=== PATIENT | male | born 1940 | race Caucasian/White ===

== ENCOUNTER 2018-04-29 19:25 | Inpatient (IN) ==
--- NOTE | 2018-04-29 19:56 | Emergency Department Note ---
Disposition Clinical Impression: Atrial fibrillation with RVR GI bleed Qualifiers: GI bleed type/associated pathology: unspecified gastrointestinal hemorrhage type Qualified Code(s): K92.2 - Gastrointestinal hemorrhage, unspecified Disposition: Admitted As Inpatient Condition: Fair Time of Disposition: 23:18 Arrhythmia/Palpitations HPI - General Chief Complaint: ED Arrhythmia/Palpitations Stated Complaint: afib/rectal bleeding Time Seen by Provider: 04/29/18 19:26 Limitations: no limitations Nursing Notes Reviewed: Yes Vital Signs Reviewed: Yes - History of Present Illness HPI Narrative: Patient is a 77-year-old male who presents to [facility] ED with a chief complaint of heart palpitations for the last 3 days. Patient presented to the [facility] urgent care this morning and was admitted for his atrial fibrillation with RVR. He was given Lopressor initially and then given Cardizem and started on a Cardizem drip. He continued to have atrial fibrillation with RVR. He was then given digoxin. It was at that time that he then needed to use the restroom so he pulled out IV and went into the bathroom. Nurse reported that there was a lot of right red blood when he went to the bathroom. The [facility] physician did a rectal exam and noted hemorrhoids. Apparently they had spoken with the who also said he had intermittently been having rectal bleeding from hemorrhoids. Patient is anticoagulated on xarelto. Apparently, patient also became agitated and psychiatry had to be consulted at the [facility]. Pt Subjective Complaint: "heart racing" Onset (ago): day(s) (3) Duration: constant Arrhythmia History: atrial fibrillation, on anti-coagulants Associated symptoms: Denies: chest pain, shortness of breath, nausea, vomiting Treatments prior to arrival: beta-alton, calcium channel alton, other ( digoxin) - Related Data Home Medications Medication Instructions Recorded Confirmed Aspirin Enteric Coated [Aspirin EC] 81 mg PO DAILY 04/29/18 04/29/18 Bupropion HCl [Wellbutrin Xl] 300 mg PO DAILY 04/29/18 04/29/18 Carbidopa/Levodopa 1.5 tab PO DAILY 04/29/18 04/29/18 [Carbidopa-Levodopa 25-100 Tab] Digoxin [Lanoxin] 0.25 mg PO DAILY 04/29/18 04/29/18 Diltiazem HCl/D5w [Diltiazem 125 125 mg IV AD 04/29/18 04/29/18 mg/125 ml-D5w] FLUoxetine HCl [Prozac] 40 mg PO DAILY 04/29/18 04/29/18 Ferrous Sulfate [Iron] 325 mg PO DAILY 04/29/18 04/29/18 Fluticasone Propionate Nasal 2 spr NS DAILY 04/29/18 04/29/18 [Flonase] LORazepam [Ativan] 1 mg PO BID PRN 04/29/18 04/29/18 Levalbuterol HCl [Xopenex 1.25 mg IH Q4H PRN 04/29/18 04/29/18 Concentrate] Losartan Potassium [Cozaar] 100 mg PO DAILY 04/29/18 04/29/18 Metoprolol XL (24 HR) Succ [Toprol 100 mg PO DAILY 04/29/18 04/29/18 XL] Omeprazole [PriLOSEC] 20 mg PO DAILY 04/29/18 04/29/18 Potassium Chloride [K-Tab ER] 20 meq PO BID PRN 04/29/18 04/29/18 Rivaroxaban [Xarelto] 20 mg PO DAILY 04/29/18 04/29/18 Silodosin [Rapaflo] 4 mg PO DAILY 04/29/18 04/29/18 Spironolactone [Aldactone] 25 mg PO NOW PRN 04/29/18 04/29/18 Tiotropium Br/Olodaterol HCl 2 puff IH DAILY 04/29/18 04/29/18 [Stiolto Respimat Inhal Sentinel] Vit A/Vit C/Vit E/Zinc/Copper 1 tab PO DAILY 04/29/18 04/29/18 [Preservision Areds Tablet] Allergies Allergy/AdvReac Type Severity Reaction Status Date / Time No Known Allergies Allergy Verified 04/29/18 21:22 All systems ED: reviewed and negative except as stated. Past Medical History - Past Medical History Attestation: Yes The following information was validated with the patient. Source: patient Medical history: Reports: non-contributory Psychiatric history: Reports: no psych history - Social History Smoking Status: Never smoker Alcohol use: Reports: rarely Drug use: Reports: none Physical Exam - General Limitations: no limitations General appearance: lethargic (pt given ativan 1mg prior to arrival) - Head Head exam: atraumatic, normocephalic, normal inspection - Eye Eye exam: Present: normal appearance, PERRL, EOMI - ENT ENT exam: normal exam, normal oropharynx, mucous membranes moist - Neck Neck exam: Present: normal inspection, full ROM, trachea midline - Chest Chest inspection: Present: normal inspection, symmetric chest wall rise - Respiratory Respiratory exam: Present: normal lung sounds bilaterally - Cardiovascular Cardiovascular exam: Present: tachycardia, irregular rhythm, normal heart sounds - Abdominal Exam Abdominal exam: Present: soft, Non-Tender. Absent: tenderness, distention, guarding, rebound, rigidity - Extremities Exam Extremities exam: Present: normal inspection, full ROM. Absent: tenderness, pedal edema - Neurological Exam Neurological exam: Present: other (somnolent) - Psychiatric Psychiatric exam: Present: normal affect, normal mood - Skin Skin exam: Present: warm, dry, intact, normal color Course Course Narrative: Patient seen and examined. Atrial fibrillation with RVR. Patient is still in this rhythm with a rate in the 140s. Cardiopulmonary workup initiated. We will also get type and screen and coags. Patient is currently on Xarelto. Rectal exam showed some nonbleeding hemorrhoids. However he has a pad on and does have dark blood on the pad. - Reevaluation(s) Reevaluation #1: Labwork unremarkable. We will touch base with cardiology to see any further recommendations for rate control. We will admit to hospitalist service. Patient is hemodynamically stable. Time: 20:36 Reevaluation #2: Per cardiology, okay to go ahead and start amiodarone bolus followed by drip. She would recommend doing a CTA of the chest and abdomen and pelvis to rule out blood clots. We will admit for A. fib with RVR and rectal bleeding. I discussed with the hospitalist who has accepted patient for admission. Time: 23:18 Vital Signs Temperature 98.3 F 04/29/18 19:27 Pulse Rate 143 04/29/18 19:27 Respiratory Rate 20 04/29/18 19:27 Blood Pressure 109/85 04/29/18 19:27 O2 Sat by Pulse Oximetry 93 04/29/18 19:27 Temperature 97.1 F L 04/30/18 05:08 Pulse Rate 128 04/30/18 05:00 Respiratory Rate 18 04/30/18 05:00 Blood Pressure 134/107 04/30/18 05:00 O2 Sat by Pulse Oximetry 93 04/30/18 05:00 Oxygen Delivery Oxygen Delivery Nasal Cannula Arrhythmia/Palpitations - Medical Records Medical records reviewed: Yes I reviewed the patient's medical records. - Lab Data Lab results reviewed: Yes I reviewed the patient's lab results. Result diagrams: 04/30/18 05:22 04/29/18 19:46 Lab Results 04/29/18 04/29/18 04/29/18 Range/Units 19:45 19:46 19:46 WBC 8.2 (4.3-11.1) K/mcL RBC 4.58 (4.19-5.50) M/mcL Hgb 12.7 L (12.9-16.9) g/dL Hct 39.8 (37.5-50.1) % MCV 86.9 (83.0-100.0) fL MCH 27.7 L (28.0-33.3) pg MCHC 31.9 (31.6-35.5) g/dL RDW 15.4 H (11.5-14.5) % Plt Count 351 (140-400) K/mcL MPV 10.5 (9.4-12.4) fL Immature Gran % 0.5 (0-4) % Seg Neutrophils % 69.6 % Lymphocytes % 15.9 % Monocytes % 13.4 % Eosinophils % 0.4 % Basophils % 0.2 % Neutrophils # 5.7 (1.6-8.9) K/mcL Lymphocytes # 1.3 (0.6-4.6) K/mcL Monocytes # 1.1 (0.0-1.3) K/mcL Eosinophils # 0.0 (0.0-0.6) K/mcL Basophils # 0.0 (0.0-0.2) K/mcL Nucleated RBCs/100 WBC 0.2 H (0) /100 WBC PT 20.6 H (9.4-12.1) Seconds INR 1.9 APTT 38.4 H (26.0-36.0) Seconds Sodium (136-145) mEq/L Potassium (3.5-5.1) mEq/L Chloride (98-107) mEq/L Carbon Dioxide (23-29) mEq/L BUN (8-23) mg/dL Creatinine (0.70-1.30) mg/dL Est GFR ( Amer) (> 60) Est GFR (Non-Af Amer) (> 60) BUN/Creatinine Ratio (6-26) Glucose (70-105) mg/dL Calculated Osmolality (280-300) Calcium (8.6-10.3) mg/dL Magnesium (1.6-2.6) mg/dL Troponin I (< 0.04) ng/mL TSH (0.340-5.600) mcIU/mL Stool Occult Blood Positive A (Negative) Blood Type Antibody Screen 04/29/18 04/29/18 Range/Units 19:46 19:46 WBC (4.3-11.1) K/mcL RBC (4.19-5.50) M/mcL Hgb (12.9-16.9) g/dL Hct (37.5-50.1) % MCV (83.0-100.0) fL MCH (28.0-33.3) pg MCHC (31.6-35.5) g/dL RDW (11.5-14.5) % Plt Count (140-400) K/mcL MPV (9.4-12.4) fL Immature Gran % (0-4) % Seg Neutrophils % % Lymphocytes % % Monocytes % % Eosinophils % % Basophils % % Neutrophils # (1.6-8.9) K/mcL Lymphocytes # (0.6-4.6) K/mcL Monocytes # (0.0-1.3) K/mcL Eosinophils # (0.0-0.6) K/mcL Basophils # (0.0-0.2) K/mcL Nucleated RBCs/100 WBC (0) /100 WBC PT (9.4-12.1) Seconds INR APTT (26.0-36.0) Seconds Sodium 143 (136-145) mEq/L Potassium 3.3 L (3.5-5.1) mEq/L Chloride 106 (98-107) mEq/L Carbon Dioxide 28 (23-29) mEq/L BUN 17 (8-23) mg/dL Creatinine 0.64 L (0.70-1.30) mg/dL Est GFR ( Amer) > 60 (> 60) Est GFR (Non-Af Amer) > 60 (> 60) BUN/Creatinine Ratio 27 H (6-26) Glucose 95 (70-105) mg/dL Calculated Osmolality 297 (280-300) Calcium 8.4 L (8.6-10.3) mg/dL Magnesium 1.6 (1.6-2.6) mg/dL Troponin I < 0.03 (< 0.04) ng/mL TSH 0.681 (0.340-5.600) mcIU/mL Stool Occult Blood (Negative) Blood Type AB POSITIVE Antibody Screen NEGATIVE - Radiology Data Radiology results reviewed: Yes I reviewed the patient's radiology results. Chest X-Ray 04/29/18 19:26 IMPRESSION: Moderate left pleural effusion as well as bibasilar airspace disease, atelectasis or pneumonia. Pulmonary edema could also be considered. Follow-up is recommended, preferably with a PA and lateral study. D/ / Araceli Diaz Cha, MD / Araceli Diaz Cha, MD Interpreting Provider: Araceli Diaz Cha, MD - EKG Data EKG attestation: Yes I reviewed and interpreted this EKG. EKG results narrative: EKG done at 1935 shows atrial fibrillation with RVR with a rate of [address] elevation or depression. Normal axis. Attestation Statement - Attestation Attestation: I examined this patient and my medical decision-making was reviewed with the Resident Physician. I agree with the documented findings, disposition and treatment plan as described except to the extent set forth below. Findings consistent with A. fib with RVR. This was not controlled at the [facility]. The patient did receive multiple interventions with digoxin, Cardizem though. He is anticoagulated. We did consider sepsis versus GI hemorrhage. He does have external hemorrhoids and there is stool occult blood present however I do feel this from the hemorrhoids given a stable hemoglobin as well as non- peritoneal abdominal examination. We will obtain CT scan to rule out pulmonary embolism as well as intra-abdominal pathology. We will start amiodarone after consultation with cardiology. I spent greater than 35 minutes of critical care time resuscitating this acutely ill patient suffering from A. fib with RVR requiring amiodarone infusion. This was excluding billable procedures.
[2018-04-29 20:17] LABS: Basophils % 0.2 %; Eosinophils % 0.4 %; Hematocrit 39.8 % (37.5-50.1); Hemoglobin 12.7 g/dL (12.9-16.9); Immature Granulocytes % 0.5 % (0-4); Lymphocytes # 1.3 K/mcL (0.6-4.6); Lymphocytes % 15.9 %; Mean Corpuscular HGB Conc 31.9 g/dL (31.6-35.5); Mean Corpuscular Hemoglobin 27.7 pg (28.0-33.3); Mean Corpuscular Volume 86.9 fL (83.0-100.0); Mean Platelet Volume 10.5 fL (9.4-12.4); Monocytes # 1.1 K/mcL (0.0-1.3); Monocytes % 13.4 %; Neutrophils # 5.7 K/mcL (1.6-8.9); Nucleated Red Blood Cells 0.2 /100 WBC (0); Platelet Count 351 K/mcL (140-400); Red Blood Count 4.58 M/mcL (4.19-5.50); Red Cell Distribution Width 15.4 % (11.5-14.5); Segmented Neutrophils % 69.6 %
[2018-04-29 20:19] LABS: INR 1.9; Prothrombin Time 20.6 Seconds (9.4-12.1)
[2018-04-29 20:21] LABS: Activated Partial Thrombo Time 38.4 Seconds (26.0-36.0)
[2018-04-29 20:23] LABS: BUN/Creatinine Ratio 27 (6-26); Blood Urea Nitrogen 17 mg/dL (8-23); Calcium 8.4 mg/dL (8.6-10.3); Carbon Dioxide 28 mEq/L (23-29); Chloride 106 mEq/L (98-107); Glucose 95 mg/dL (70-105); Magnesium 1.6 mg/dL (1.6-2.6); Osmolality,Calculated 297 (280-300); Potassium 3.3 mEq/L (3.5-5.1); Sodium 143 mEq/L (136-145); Troponin I < 0.03 ng/mL (< 0.04); eGFR For African Americans > 60 (> 60); eGFR For Non-African Americans > 60 (> 60)
[2018-04-29 20:37] LABS: Thyroid Stimulating Hormone 0.681 mcIU/mL (0.340-5.600)
[2018-04-29] MEDS ORDERED: Pantoprazole 40 MG VIAL IVP ONE (21:18)
[2018-04-29] MEDS ORDERED: Amiodarone Premix 150 MG/100 ML BAG IVPB ONE (21:48)
[2018-04-29] MEDS ORDERED: Amiodarone Premix 360 MG/200 ML BAG IVC ONE (21:48)
[2018-04-29] MEDS ORDERED: Isovue-370 500 ML INFUS..BTL IV ONE (22:03)
[2018-04-29] MEDS ORDERED: Furosemide 40 MG/4 ML VIAL IVP ONE (22:06)
--- NOTE | 2018-04-29 23:13 | Internal Med History&Physical ---
<Fozia Ruff - Last Filed: 04/30/18 07:39> Date of Encounter: 04/30/18 Time of Encounter: 00:30 Internal Medicine - H&P: HPI Admitted From: Hospital to Hospital Transfer History of present illness: Mr. Ozuna is a 77 year old male with PMH Parkinson's and chronic Afib anticoagulated on xarelto who presented to the ED with complaints of heart palpitations x 3 days. He initially presented to [facility] urgent care but was then admitted to the [facility] for Afib with RVR. While at the [facility], he received lopressor, cardizem, then cardizem gtt--his Afib with RVR persisted and he was given digoxin. The patient reportedly pulled out his IV before going to the restroom. His nurse at the [facility] reported a substantial amount of bright red blood after the patient used the bathroom and rectal exam by his [facility] doctor revealed hemorrhoids. Per review of ED note, patient's informed them that the pt has been having intermittent bleeding from these hemorrhoids. The pt was reported to have gotten agitated and required a psychiatry consult at the [facility]. He was transferred to [place] for better control of AFib RVR. He was difficult to arrouse on interview and he had reportedly been given Ativan on route to [place]. He did become more arousable however remained somnolent but answers questions appropriately. He admitted to chills and night sweats, cough, pleuritic chest pain. On arrival to the ED, the pt's heart rate was 143 and irregular; cardiac workup was started. His metabolic panel showed slight hypokalemia of 3.3 but was otherwise unremarkable. Hemoglobin and hematorcrit is mildly decreased at 12.7/ 39.8. Coag studies show INR 1.9 and PTT 38.4. Troponin negative. Stool occult was positive. CXR showed moderate left pleural effusion as well as bibasilar airspace disease reflecting either atelectasis vs PNA. Follow up CT showed consolidation suggesting PNA. He was admitted for further workup and management of AFib with RVR and started on amiodarone gtt in ED as well as PNA. Past Med Surg Social Fam HX - Past Medical History Medical history: non-contributory Psychiatric history: no psych history - Social History Smoking Status: Never smoker Alcohol use: rarely Drug use: none Internal Medicine - H&P: Meds Aspirin Enteric Coated [Aspirin EC] 81 mg PO DAILY 04/29/18 [History] Bupropion HCl [Wellbutrin Xl] 300 mg PO DAILY 04/29/18 [History] Carbidopa/Levodopa [Carbidopa-Levodopa 25-100 Tab] 1.5 tab PO DAILY 04/29/18 [ History] Digoxin [Lanoxin] 0.25 mg PO DAILY 04/29/18 [History] Diltiazem HCl/D5w [Diltiazem 125 mg/125 ml-D5w] 125 mg IV AD 04/29/18 [History] FLUoxetine HCl [Prozac] 40 mg PO DAILY 04/29/18 [History] Ferrous Sulfate [Iron] 325 mg PO DAILY 04/29/18 [History] Fluticasone Propionate Nasal [Flonase] 2 spr NS DAILY 04/29/18 [History] LORazepam [Ativan] 1 mg PO BID PRN 04/29/18 [History] Levalbuterol HCl [Xopenex Concentrate] 1.25 mg IH Q4H PRN 04/29/18 [History] Losartan Potassium [Cozaar] 100 mg PO DAILY 04/29/18 [History] Metoprolol XL (24 HR) Succ [Toprol XL] 100 mg PO DAILY 04/29/18 [History] Omeprazole [PriLOSEC] 20 mg PO DAILY 04/29/18 [History] Potassium Chloride [K-Tab ER] 20 meq PO HS 04/29/18 [History] Rivaroxaban [Xarelto] 20 mg PO HS 04/29/18 [History] Silodosin [Rapaflo] 4 mg PO HS 04/29/18 [History] Spironolactone [Aldactone] 25 mg PO NOW PRN 04/29/18 [History] Tiotropium Br/Olodaterol HCl [Stiolto Respimat Inhal [place]] 2.5 mg IH DAILY [History] Vit A/Vit C/Vit E/Zinc/Copper [Preservision Areds Tablet] 1 tab PO BID 04/29/18 [History] Albuterol Sulfate [Albuterol Inhaler] 90 mcg IH QID PRN 04/30/18 [History] Carbidopa-Levodopa 25-100 Tab 37.5 mg PO BID 04/30/18 [History] Saw Alba 450 mg PO HS 04/30/18 [History] Triamcinolone Acet 0.1% CRM 1 applic TP BID PRN 04/30/18 [History] Vit A/Vit C/Vit E/Zinc/Copper [Icaps Areds Softgel] 1 each PO 04/30/18 [History] amLODIPine [Norvasc] 2.5 mg PO BID 04/30/18 [History] 3 Allergy/AdvReac Type Severity Reaction Status Date / Time No Known Allergies Allergy Verified 04/29/18 21:22 All Systems PM: A 10-system review of systems was performed and is negative for pertinent findings except as documented above in the HPI. - Constitutional Constitutional: chills, no fever(s) - Cardiovascular Cardiovascular ROS IM: chest pain, no diaphoresis, no dyspnea, no dyspnea on exertion, no edema - Respiratory Respiratory: cough, no dyspnea, no dyspnea on exertion, no wheezing - Gastrointestinal Gastrointestinal: hematochezia, no abdominal pain, no nausea, no vomiting - Constitutional Vitals: Temp Pulse Resp BP Pulse Ox 98.3 F 120 14 135/90 94 04/29/18 19:27 04/29/18 23:00 04/29/18 23:00 04/29/18 23:00 04/29/18 23:00 General appearance: Present: A&O X 3, no acute distress - Head Head exam: Present: atraumatic, normal inspection, normocephalic - Eye Eye exam: Present: normal appearance, PERRL Pupils: Present: PERRL - ENT ENT exam: Present: mucous membranes dry - Respiratory Respiratory exam: Present: CTAB. Absent: accessory muscle use, rales, wheezes - Cardiovascular Cardiovascular exam: Present: irregular rhythm, +S1, +S2, tachycardia - GI/Abdominal GI/Abdominal exam: Present: normal bowel sounds, soft. Absent: firm, rebound, rigid Additional comments: small reducible umbilical hernia - Extremities Exam Extremities exam: Present: pedal edema (pitting L>R), warm. Absent: cyanotic, mottling, tenderness - Neurological Exam Neurological exam: Present: oriented X3 Additional comments: somulent. Internal Med - H&P Results - Labs CBC & Chem 7: 04/30/18 05:22 04/30/18 05:22 - Assessment and plan (1) Atrial fibrillation with RVR Current Visit: Yes Status: Chronic Assessment and plan: - Likely secondary to infection as below - Chronic in nature. - Failed therapy of lopressor, cardizem gtt, digoxin at [facility] - Started on amiodarone gtt in ED, will continue - Cardiology has been consulted. - Anticoagulated at home with Xarelto (being held due to GI bleed) Plan - Continue home dose metoprolol - Continue amio gtt - Echo pending (2) Pneumonia Current Visit: Yes Status: Acute Assessment and plan: - As seen on CXR and CTA in ED - Likely community acquired. - Patient subjectively complains of cough and chills - Does not meet SIRS criteria, no leukocytosis, tachypnea, fever. - Started on rocephin Qualifiers: Pneumonia type: due to unspecified organism Laterality: bilateral Lung location: lower lobe of lung Qualified Code(s): J18.1 - Lobar pneumonia, unspecified organism (3) Cystitis Current Visit: Yes Status: Suspected Assessment and plan: - CT abdomen shows thickening of bladder wall with fat stranding around bladder - No UA collected - Vague, mild, suprapubic symptoms Plan - Obtain UA - Continue Rocephin for PNA as above. (4) GI bleed Current Visit: Yes Status: Acute Assessment and plan: - Multiple episodes of bright red blood per rectum - Hemorrhoids noted at both [facility] and in ED - No BM since admission - Colonoscopy performed 2 years ago with polyp removal, otherwise normal. - H/H stable, BP stable. Plan - Holding anticoagulation as above - Omeprazole - Continue to monitor serial CBC Qualifiers: GI bleed type/associated pathology: unspecified gastrointestinal hemorrhage type Qualified Code(s): K92.2 - Gastrointestinal hemorrhage, unspecified (5) Parkinsons disease Current Visit: Yes Status: Chronic Assessment and plan: - Continue home meds. (6) Pleural effusion Current Visit: Yes Status: Acute Assessment and plan: - Given lasix 40 mg once in ED - No complaints of SOB - Continue to monitor. - Echo pending. (7) DVT prophylaxis Current Visit: Yes Status: Acute Assessment and plan: Mechanical due to GI bleed as above. Hold Xarelto. - Time Spent With Patient Total time spent is greater than 50% in coordination of care (as documented) at patient's floor/unit and/or counseling patient: 25 - 35 minutes <Corrina Rothman - Last Filed: 05/02/18 06:43> Date of Encounter: 04/29/18 Internal Medicine - H&P: HPI History of present illness: Mr. Ozuna is a 77 year old male All Systems PM: A 10-system review of systems was performed and is negative for pertinent findings except as documented above in the HPI. - Constitutional Vitals: Temp Pulse Resp BP Pulse Ox 97.4 F L 86 18 153/90 97 05/02/18 03:58 05/02/18 03:58 05/02/18 03:58 05/02/18 03:58 05/02/18 03:58 Internal Med - H&P Results - Labs CBC & Chem 7: 05/02/18 04:57 05/02/18 04:57 Labs: Short CBC 05/02/18 Range/Units 04:57 WBC 7.7 (4.3-11.1) K/mcL Hgb 12.0 L (12.9-16.9) g/dL Hct 39.4 (37.5-50.1) % Plt Count 334 (140-400) K/mcL Neutrophils # 4.8 (1.6-8.9) K/mcL BMP 05/01/18 05/02/18 06:10 04:57 Sodium 141 139 Potassium 3.0 L 3.8 D Chloride 105 103 Carbon Dioxide 30 H 32 H BUN 12 26 H Creatinine 0.56 L 0.65 L Glucose 100 91 Calcium 8.3 L 8.7 - Attending Attestation I have personally performed the ward portion of history and physical examination. I discussed these findings,assessment and plans outlined above with the resident, and I agree with the proposed assessment and plan. - Assessment and plan (1) Atrial fibrillation with RVR Current Visit: Yes Status: Acute (2) GI bleed Current Visit: Yes Status: Resolved Qualifiers: GI bleed type/associated pathology: unspecified gastrointestinal hemorrhage type Qualified Code(s): K92.2 - Gastrointestinal hemorrhage, unspecified (3) Pneumonia Current Visit: Yes Status: Acute Qualifiers: Pneumonia type: due to unspecified organism Laterality: bilateral Lung location: lower lobe of lung Qualified Code(s): J18.1 - Lobar pneumonia, unspecified organism (4) Parkinsons disease Current Visit: Yes Status: Chronic (5) COPD (chronic obstructive pulmonary disease) Current Visit: Yes Status: Chronic Qualifiers: COPD type: unspecified COPD Qualified Code(s): J44.9 - Chronic obstructive pulmonary disease, unspecified (6) Depression Current Visit: Yes Status: Chronic Qualifiers: Depression Type: major depressive disorder Major depression recurrence: recurrent Active/Remission status: remission status unspecified Qualified Code(s): F33.9 - Major depressive disorder, recurrent, unspecified - Time Spent With Patient Total time spent is greater than 50% in coordination of care (as documented) at patient's floor/unit and/or counseling patient:
[2018-04-30] MEDS ORDERED: *HR* LORazepam 1 MG TABLET PO PRN (03:09)
[2018-04-30] MEDS: Amiodarone Premix 360 MG/200 ML BAG IVC SCH ×2 (05:06→18:33)
[2018-04-30 06:01] LABS: Basophils % 0.3 %; Eosinophils # 0.1 K/mcL (0.0-0.6); Eosinophils % 1.1 %; Hematocrit 39.9 % (37.5-50.1); Hemoglobin 12.4 g/dL (12.9-16.9); Immature Granulocytes % 0.6 % (0-4); Lymphocytes # 1.4 K/mcL (0.6-4.6); Lymphocytes % 22.4 %; Mean Corpuscular HGB Conc 31.1 g/dL (31.6-35.5); Mean Corpuscular Volume 86.9 fL (83.0-100.0); Mean Platelet Volume 10.5 fL (9.4-12.4); Monocytes # 0.8 K/mcL (0.0-1.3); Monocytes % 12.9 %; Neutrophils # 3.9 K/mcL (1.6-8.9); Platelet Count 335 K/mcL (140-400); Red Blood Count 4.59 M/mcL (4.19-5.50); Red Cell Distribution Width 15.6 % (11.5-14.5); Segmented Neutrophils % 62.7 %
[2018-04-30 06:26] LABS: BUN/Creatinine Ratio 21 (6-26); Blood Urea Nitrogen 14 mg/dL (8-23); Calcium 8.4 mg/dL (8.6-10.3); Carbon Dioxide 30 mEq/L (23-29); Chloride 107 mEq/L (98-107); Glucose 100 mg/dL (70-105); Osmolality,Calculated 303 (280-300); Potassium 3.2 mEq/L (3.5-5.1); Sodium 146 mEq/L (136-145); eGFR For African Americans > 60 (> 60); eGFR For Non-African Americans > 60 (> 60)
[2018-04-30 06:36] LABS: Digoxin 1.3 ng/mL (0.8-2.0)
[2018-04-30 06:39] LABS: Bilirubin,Urine Negative (Negative); Blood,Urine Trace (Negative); Clarity,Urine Clear (Clear); Color,Urine Yellow (Yellow); Glucose,Urine (UA) Normal (Normal); Ketones,Urine Trace mg/dL (Negative); Leukocyte Esterase,Urine Negative (Negative); Nitrite,Urine Negative (Negative); Protein,Urine Negative (Neg-Trace); Specific Gravity,Urine 1.011 (1.010-1.025); Urobilinogen,Urine Normal (Normal)
[2018-04-30 06:41] LABS: Bacteria,Urine None Seen per hpf (None-Few); Hyaline Casts,Urine None Seen per lpf (None-Few); RBC,Urine 0-3 per hpf (0-3); Squamous Epithelial Cell,Urine Few per lpf (None-Few); WBC,Urine 0-3 per hpf (0-3)
[2018-04-30] MEDS ORDERED: *HR* Metoprolol 5 MG/5 ML VIAL IVP PRN (07:51)
[2018-04-30] MEDS ORDERED: Potassium Chloride Elixir 20 MEQ/15 ML UDC PO ONE (07:51)
[2018-04-30] MEDS ORDERED: Levalbuterol Neb 1.25 MG/3 ML IH PRN (08:00)
[2018-04-30] MEDS ORDERED: Metoprolol XL (24 HR) Succ 50 MG TAB.ER.24H PO SCH (09:00)
[2018-04-30] MEDS ORDERED: FLUoxetine 20 MG CAPSULE PO SCH (09:00)
[2018-04-30] MEDS ORDERED: BuPROPion XL (24 HR) 150 MG TABLET PO SCH (09:00)
[2018-04-30] MEDS: cefTRIAXone 1,000 MG in Water for inj. (sterile) 20 ML 10 ML IVP SCH (09:04)
[2018-04-30] MEDS: Carbidopa/Levodopa 25/100 TABLET PO SCH (09:06)
[2018-04-30] MEDS: Aspirin Enteric Coated 81 MG Tablet PO SCH (09:06)
--- NOTE | 2018-04-30 10:40 | Cardiology Consult Note ---
Addendum entered and electronically signed by Carlie Moya CNP 04/30/18 10: 59: Recommend resuming xarelto when able per primary service. Original Note: Date of Encounter: 04/30/18 Time of Encounter: 08:00 Assessment and Plan (1) Pneumonia Current Visit: Yes Status: Acute Per cardiology: -Admitted with pneumonia. -On ATB. -Management per primary service. Qualifiers: Pneumonia type: due to unspecified organism Laterality: bilateral Lung location: lower lobe of lung Qualified Code(s): J18.1 - Lobar pneumonia, unspecified organism (2) GI bleed Current Visit: Yes Status: Acute Per cardiology: -Reported bright red blood per rectum. -Stool positive for OB. -Xarelto has been held. -Management per primary service. Qualifiers: GI bleed type/associated pathology: unspecified gastrointestinal hemorrhage type Qualified Code(s): K92.2 - Gastrointestinal hemorrhage, unspecified (3) Atrial fibrillation with RVR Current Visit: Yes Status: Acute Per cardiology: -Known PAF. -Was on BB and xarelto in outpatient setting. -Currently a.fib RVR, HR 124. -On toprol 100mg daily, amdiodarone drip. Reported was tried on cardizem push and digoxin IV at CT. -[id number] score 3 (age, HTN). Was on xarelto in outpatient setting. Now held due to GI bleed. -BP 130-160s systolic. -Echo has been ordered, recommend obtaining when HR better controlled. -Will increase toprol. -Continue to monitor telemetry. -Suspect HR will improve as clinical condition improves. Discussion w patient/family: The assessment and plan as outlined above was discussed with the patient who expressed understanding and agreement. All questions were answered. Thank you for involving us in the care of your patient. Please call with any questions.\\ Discussed and reviewed with . History of Present Illness Consult date: 04/30/18 Requesting physician: Fozia Ruff Consult reason: a.fib RVR Chief complaint: cough, shortness of breath History of present illness: Mr. Ozuna is a 77 year old male with a relevant past medical history of PAF, follows with CT cardiology, HTN, parkinsons disease, anxiety, and depression who presented to [facility] with complaints of productive cough, shortness of breath. Was transferred to [facility]. Patient denies chest pain. Reports shortness of breath. Denies palpitations or fluttering. Patient states he is feeling somewhat better today than yesterday. Patient does not remember previous cardiac work up that has been completed at CT. Past Med Surg Social Fam HX - Past Medical History Attestation: Yes The following information was validated with the patient. Source: patient, old records reviewed Medical history: atrial fibrillation Additional medical history: Depression/anxiety. Parkinsons. HTN. Afib. BPH. Patient states "broke his back" Psychiatric history: anxiety, depression - Past Surgical History Surgical History: no surgical history - Social History Smoking Status: Never smoker Smokeless Tobacco Status: No Alcohol use: rarely Drug use: none Medications and Allergies Aspirin Enteric Coated [Aspirin EC] 81 mg PO DAILY 04/29/18 [History] Bupropion HCl [Wellbutrin Xl] 300 mg PO DAILY 04/29/18 [History] Carbidopa/Levodopa [Carbidopa-Levodopa 25-100 Tab] 1.5 tab PO DAILY 04/29/18 [ History] Digoxin [Lanoxin] 0.25 mg PO DAILY 04/29/18 [History] Diltiazem HCl/D5w [Diltiazem 125 mg/125 ml-D5w] 125 mg IV AD 04/29/18 [History] FLUoxetine HCl [Prozac] 40 mg PO DAILY 04/29/18 [History] Ferrous Sulfate [Iron] 325 mg PO DAILY 04/29/18 [History] Fluticasone Propionate Nasal [Flonase] 2 spr NS DAILY 04/29/18 [History] LORazepam [Ativan] 1 mg PO BID PRN 04/29/18 [History] Levalbuterol HCl [Xopenex Concentrate] 1.25 mg IH Q4H PRN 04/29/18 [History] Losartan Potassium [Cozaar] 100 mg PO DAILY 04/29/18 [History] Metoprolol XL (24 HR) Succ [Toprol XL] 100 mg PO DAILY 04/29/18 [History] Omeprazole [PriLOSEC] 20 mg PO DAILY 04/29/18 [History] Potassium Chloride [K-Tab ER] 20 meq PO BID PRN 04/29/18 [History] Rivaroxaban [Xarelto] 20 mg PO DAILY 04/29/18 [History] Silodosin [Rapaflo] 4 mg PO DAILY 04/29/18 [History] Spironolactone [Aldactone] 25 mg PO NOW PRN 04/29/18 [History] Tiotropium Br/Olodaterol HCl [Stiolto Respimat Inhal Gallagher] 2 puff IH DAILY [History] Vit A/Vit C/Vit E/Zinc/Copper [Preservision Areds Tablet] 1 tab PO DAILY [History] 3 Allergy/AdvReac Type Severity Reaction Status Date / Time No Known Allergies Allergy Verified 04/29/18 21:22 All Systems Review: The remainder of the systems were reviewed and are negative - Cardiovascular Cardiovascular: as per HPI, dyspnea at rest, dyspnea on exertion - Respiratory Respiratory: cough Physical Examination Vital Signs, Last 4 Hours Pulse Resp BP Pulse Ox 04/30/18 10:17 102 16 138/120 94 General: Conversant, No Apparent Distress HEENT: Atraumatic, Normocephaly, Mucus Membranes Moist Neck: No JVD, Normal carotid pulses Cardiac: Normal S1 and S2, No Murmur, Other (Irregulalry irregular ) Lungs: Other (Lung sounds diminished throughout. ) Neuro: Alert and responsive, No focal deficits noted Abdomen: Soft, Non-Tender Skin: No rashes noted on visualized skin Musculoskeletal: No Chest Wall Tenderness Extremities: No Clubbing, No Cyanosis, No Edema, Normal Pulses Results 04/30/18 05:22 04/30/18 05:22 Impressions Chest X-Ray 04/29/18 19:26 IMPRESSION: Moderate left pleural effusion as well as bibasilar airspace disease, atelectasis or pneumonia. Pulmonary edema could also be considered. Follow-up is recommended, preferably with a PA and lateral study. D/ / Araceli Diaz Cha, MD / Araceli Diaz Cha, MD Interpreting Provider: Araceli Diaz Cha, MD Chest CTA 04/29/18 22:03 IMPRESSION: No CT evidence pulmonary embolism. Small bilateral pleural effusions with patchy bibasilar airspace disease including consolidation, likely pneumonia. Cholelithiasis. Urinary bladder wall thickening suspected as well as perivesical fat stranding. Correlation for cystitis is recommended. 3.0 cm infrarenal abdominal aortic aneurysm. See below. Compression deformities of the T6 as well as L2 through L4 vertebral bodies of indeterminate age. MRI may be helpful if indicated. RECOMMENDATIONS: 3.0 cm AAA Recommend follow-up every 3 years. Reference: J Vasc Surg 2008;50(4 Suppl):S2-49. D/ / Araceli Diaz Cha, MD / Araceli Diaz Cha, MD Interpreting Provider: Araceli Diaz Cha, MD Abdomen/Pelvis CT 04/29/18 22:04 IMPRESSION: No CT evidence pulmonary embolism. Small bilateral pleural effusions with patchy bibasilar airspace disease including consolidation, likely pneumonia. Cholelithiasis. Urinary bladder wall thickening suspected as well as perivesical fat stranding. Correlation for cystitis is recommended. 3.0 cm infrarenal abdominal aortic aneurysm. See below. Compression deformities of the T6 as well as L2 through L4 vertebral bodies of indeterminate age. MRI may be helpful if indicated. RECOMMENDATIONS: 3.0 cm AAA Recommend follow-up every 3 years. Reference: J Vasc Surg 2008;50(4 Suppl):S2-49. D/ / Araceli Diaz Cha, MD / Araceli Diaz Cha, MD Interpreting Provider: Araceli Diaz Cha, MD Active Medications Aspirin (Aspirin Ec) 81 mg PO DAILY BETZAIDA Stop: 10/30/18 09:01 Last Admin: 04/30/18 09:06 Dose: 81 mg Carbidopa/Levodopa (Sinemet) 1.5 each PO DAILY BETZAIDA Stop: 10/30/18 09:01 Last Admin: 04/30/18 09:06 Dose: 1.5 each Amiodarone HCl/Dextrose (Amiodarone Drip Premix 360mg/200ml) 360 mg in 200 mls @ 16.667 mls/hr IVC CONT BETZAIDA PRN Reason: 0.5 MG/MIN Stop: 10/30/18 05:01 Last Admin: 04/30/18 05:06 Dose: 0.5 mg/min, 16.667 mls/hr Ceftriaxone Sodium 1,000 mg/ (Sterile Water) 10 mls @ 600 mls/hr IVP DAILY BETZAIDA Stop: 10/30/18 09:01 Last Admin: 04/30/18 09:04 Dose: 600 mls/hr Levalbuterol HCl (Xopenex) 1.25 mg IH [id number] PRN PRN Reason: Shortness Of Breath Stop: 10/30/18 08:01 Lorazepam (Ativan) 1 mg PO BID PRN PRN Reason: Anxiety Stop: 10/30/18 03:10 Losartan Potassium (Cozaar) 100 mg PO DAILY BETZAIDA Stop: 10/30/18 09:01 Last Admin: 04/30/18 09:05 Dose: 100 mg Metoprolol Succinate (Toprol Xl) 100 mg PO DAILY BETZAIDA Stop: 10/30/18 09:01 Last Admin: 04/30/18 09:06 Dose: 100 mg Metoprolol Tartrate (Lopressor) 5 mg IVP Q6HR PRN PRN Reason: HR>110 Stop: 10/30/18 07:52 (Stiolto Respimat (Inhal)) 2 puff IH DAILY BETZAIDA Stop: 10/30/18 09:01 Omeprazole (Prilosec) 20 mg PO DAILY BETZAIDA PRN Reason: Protocol Stop: 10/30/18 09:01 Last Admin: 04/30/18 09:06 Dose: 20 mg Potassium Chloride (Potassium Chloride) 20 meq PO BID PRN PRN Reason: LOW POTASSIUM Laboratory Tests 04/29/18 04/29/18 04/29/18 19:45 19:46 19:46 Hgb INR 1.9 Potassium Creatinine Magnesium 1.6 Troponin I < 0.03 TSH 0.681 Stool Occult Blood Positive A 04/30/18 04/30/18 05:22 05:22 Hgb 12.4 L INR Potassium 3.2 L Creatinine 0.68 L Magnesium Troponin I TSH Stool Occult Blood - Imaging and Cardiology Chest Xray: report reviewed Echo: pending - EKG Interpretation EKG results cardiology: personally reviewed (ECG with a.fib RVR, HR 126.), other (Telemetry reviewed with average HR previous 12 hours noted to be 124, a.fib. PVCs and couplets noted.) Consult Discharge Plan - Plan Referrals: NONE,PCP [Primary Care Provider] -
[2018-04-30] MEDS ORDERED: Metoprolol XL (24 HR) Succ 25 MG TAB.ER.24H PO ONE (10:53)
--- NOTE | 2018-04-30 14:14 | Internal Med Progress Note ---
Date of Encounter: 04/30/18 Time of Encounter: 08:30 - Assessment and plan (1) Atrial fibrillation with RVR Current Visit: Yes Status: Acute Assessment and plan: RVR with history of atrial fibrillation. Did not respond to IV digoxin or calcium channel alton. Patient was started on IV amiodarone drip per cardiology recommendations. Patient is on anticoagulation with Xarelto, which is currently held due to rectal bleeding, likely hemorrhoidal and stool occult blood being positive. Echocardiogram is a difficult study due to RVR, probably mildly reduced EF, severely dilated left atrium, study to be repeated when heart rate is better controlled. Cardiology consult appreciated, to increase beta alton and resume anticoagulation when able. (2) GI bleed Current Visit: Yes Status: Acute Assessment and plan: Probably hemorrhoidal. Hemoglobin stable. Continue to monitor hemoglobin, if remains stable, will resume anticoagulation with Xarelto. Qualifiers: GI bleed type/associated pathology: unspecified gastrointestinal hemorrhage type Qualified Code(s): K92.2 - Gastrointestinal hemorrhage, unspecified (3) COPD (chronic obstructive pulmonary disease) Current Visit: Yes Status: Chronic Assessment and plan: Not in acute exacerbation. Continue home medications, when necessary bronchodilators and supplemental oxygen. He is currently noted to be on 4 L/m nasal cannula, unclear if he is on home oxygen. Qualifiers: COPD type: unspecified COPD Qualified Code(s): J44.9 - Chronic obstructive pulmonary disease, unspecified (4) Parkinsons disease Current Visit: Yes Status: Chronic Assessment and plan: Continue home meds. (5) Depression Current Visit: Yes Status: Chronic Assessment and plan: Patient reports that he has been an inpatient at the [place] psychiatric unit for suicidal ideation. We obtained records from [facility] for further details. Patient currently denies suicidal or homicidal ideation. Continue home medications. Qualifiers: Depression Type: major depressive disorder Major depression recurrence: recurrent Active/Remission status: remission status unspecified Qualified Code(s): F33.9 - Major depressive disorder, recurrent, unspecified - Time Spent With Patient Total time spent is greater than 50% in coordination of care (as documented) at patient's floor/unit and/or counseling patient: - Subjective Interval history: Reports feeling better. Improved shortness of breath. Denies chest pain, cough , palpitations. No fever, chills. Tolerates liquid diet. Heart rate continues to be elevated in the 120s, on IV amiodarone drip. - Constitutional Vitals: Temp Pulse Resp BP Pulse Ox 97.7 F 110 20 139/119 94 04/30/18 12:49 04/30/18 12:22 04/30/18 12:22 04/30/18 12:22 04/30/18 12:22 General appearance: Present: A&O X 3, answers questions appropriately - Respiratory Respiratory exam: Present: CTAB. Absent: accessory muscle use, rales, rhonchi, wheezes - Cardiovascular Cardiovascular exam: Present: irregular rhythm, +S1, +S2, tachycardia. Absent: diastolic murmur, gallop, rubs, systolic murmur - GI/Abdominal GI/Abdominal exam: Present: normal bowel sounds, soft, no peritoneal signs. Absent: distended, tenderness - Extremities Exam Extremities exam: Present: full ROM, pedal edema (trace), warm, radial pulses palpable and symmetrical. Absent: calf tenderness, cyanotic - Neurological Exam Neurological exam: Present: CN II-XII intact, oriented X3, no focal deficits. Absent: pronater drift, facial droop, speech deficit Internal Medicine: Result - Labs CBC & Chem 7: 04/30/18 05:22 04/30/18 05:22 - ABG Interpretation ABG results: PT/INR, D-dimer PT 20.6 Seconds (9.4-12.1) H 04/29/18 19:46 Consult Discharge Plan - Plan Referrals: NONE,PCP [Primary Care Provider] -
[2018-04-30] MEDS: (Stiolto Respimat Inhal) IH SCH (15:02)
[2018-04-30] MEDS ORDERED: *HR* Heparin 5,000 UNIT/ML VIAL IVP PRN ×2 (15:27)
[2018-04-30] MEDS ORDERED: *HR* Heparin 5,000 UNIT/ML VIAL IVP ONE (15:27)
[2018-04-30 16:03] LABS: Hematocrit 41.8 % (37.5-50.1); Mean Corpuscular HGB Conc 31.1 g/dL (31.6-35.5); Mean Corpuscular Hemoglobin 27.4 pg (28.0-33.3); Mean Corpuscular Volume 88.2 fL (83.0-100.0); Mean Platelet Volume 10.1 fL (9.4-12.4); Platelet Count 337 K/mcL (140-400); Red Blood Count 4.74 M/mcL (4.19-5.50); Red Cell Distribution Width 15.3 % (11.5-14.5)
[2018-04-30 16:15] LABS: INR 1.8; Prothrombin Time 19.7 Seconds (9.4-12.1)
[2018-04-30 16:17] LABS: Activated Partial Thrombo Time 37.5 Seconds (26.0-36.0)
--- NOTE | 2018-04-30 16:24 | Electrocardiograph Report ---
[place] [id number] Test Date: 2018-04-29 Pat Name: Cuauhtemoc Ozuna Department: 104 Room: 11 Gender: M Manager Fund: SALMA : 1940 Requested By: India Hsu Order Number: [id number] Reading MD: Radha Mera Measurements Intervals [place] Rate: 126 P: NE: 0 QRS: -16 QRSD: 120 T: 216 QT: 314 QTc: 388 Interpretive Statements ATRIAL FIBRILLATION WITH RAPID VENTRICULAR RESPONSE Electronically Signed On 04-30-2018 16:22:27 EDT by Radha Mera
[2018-04-30] MEDS: Heparin 25,000 UNIT/500 ML D5W 25,000 UNIT/500 ML BAG IVC SCH (18:21)
[2018-04-30] MEDS ORDERED: Menthol 9.1 MG LOZENGE PO PRN (19:32)
[2018-05-01 01:18] LABS: Heparin anti-factor XA UFH 0.53 IU/mL (0.30-0.70)
[2018-05-01] MEDS: Amiodarone Premix 360 MG/200 ML BAG IVC SCH (02:58)
[2018-05-01 06:25] LABS: Basophils % 0.3 %; Eosinophils # 0.1 K/mcL (0.0-0.6); Eosinophils % 1.6 %; Hematocrit 41.6 % (37.5-50.1); Immature Granulocytes % 0.6 % (0-4); Lymphocytes # 1.3 K/mcL (0.6-4.6); Lymphocytes % 18.9 %; Mean Corpuscular HGB Conc 31.3 g/dL (31.6-35.5); Mean Corpuscular Hemoglobin 27.4 pg (28.0-33.3); Mean Corpuscular Volume 87.8 fL (83.0-100.0); Mean Platelet Volume 10.1 fL (9.4-12.4); Monocytes # 0.8 K/mcL (0.0-1.3); Neutrophils # 4.6 K/mcL (1.6-8.9); Platelet Count 317 K/mcL (140-400); Red Blood Count 4.74 M/mcL (4.19-5.50); Red Cell Distribution Width 15.4 % (11.5-14.5); Segmented Neutrophils % 66.6 %
[2018-05-01 06:48] LABS: BUN/Creatinine Ratio 21 (6-26); Blood Urea Nitrogen 12 mg/dL (8-23); Calcium 8.3 mg/dL (8.6-10.3); Carbon Dioxide 30 mEq/L (23-29); Chloride 105 mEq/L (98-107); Glucose 100 mg/dL (70-105); Osmolality,Calculated 292 (280-300); Sodium 141 mEq/L (136-145); eGFR For African Americans > 60 (> 60); eGFR For Non-African Americans > 60 (> 60)
[2018-05-01] MEDS: Carbidopa/Levodopa 25/100 TABLET PO SCH (08:10)
[2018-05-01] MEDS: Metoprolol XL (24 HR) Succ 50 MG TAB.ER.24H PO SCH ×2 (08:10→20:30)
[2018-05-01] MEDS: cefTRIAXone 1,000 MG in Water for inj. (sterile) 20 ML 10 ML IVP SCH (08:11)
[2018-05-01] MEDS: Aspirin Enteric Coated 81 MG Tablet PO SCH (08:11)
[2018-05-01] MEDS: (Stiolto Respimat Inhal) IH SCH (08:29)
[2018-05-01] MEDS ORDERED: Potassium Chloride Elixir 20 MEQ/15 ML UDC PO ONE (08:52)
--- NOTE | 2018-05-01 10:22 | Cardiology Progress Note ---
Date of Encounter: 05/01/18 Time of Encounter: 09:30 Assessment and Plan (1) Pneumonia Current Visit: Yes Status: Acute Per cardiology: -Admitted with pneumonia. -On ATB. -Management per primary service. Qualifiers: Pneumonia type: due to unspecified organism Laterality: bilateral Lung location: lower lobe of lung Qualified Code(s): J18.1 - Lobar pneumonia, unspecified organism (2) GI bleed Current Visit: Yes Status: Acute Per cardiology: -Reported bright red blood per rectum. -Stool positive for OB. -Xarelto has been held. -Was started on heparin drip last night. Tolerated well. hemoglobin improved today. -Management per primary service. Qualifiers: GI bleed type/associated pathology: unspecified gastrointestinal hemorrhage type Qualified Code(s): K92.2 - Gastrointestinal hemorrhage, unspecified (3) Atrial fibrillation with RVR Current Visit: Yes Status: Acute Per cardiology: -Known PAF. -Was on BB and xarelto in outpatient setting. -Currently a.fib average HR 104. -ON BB, CCB, amiodarone drip. -Lawla1zegb score 3 (age, HTN). Was on xarelto in outpatient setting. Currently on heparin drip. -BP 120-150s systolic. -TTE with possible mild reduction in LVEF, however poor study due to a.fib RVR. -Will increase CCB. Will discontinue amiodarone drip. Can consider IV digoxin load if HRs remain uncontrolled. -Will repeat limited TTE when HR controlled. -Will obtain cardiology records from [place]. -Tolerated heparin drip well, hemoglobin improved on heparin drip. Will stop heparin drip tonight and resume xarelto. Discussion w patient/family: The assessment and plan as outlined above was discussed with the patient who expressed understanding and agreement. All questions were answered. Thank you for involving us in the care of your patient. Please call with any questions.\ Discussed and reviewed with . Subjective Principal diagnosis: Pneumonia, a.fib RVR Interval history: Patient reports mild improvement in symptoms. Biggest complaint today is cough. Denies chest pain, palpitations, or fluttering. Objective Vital Signs, Last 4 Hours Temp Pulse Resp BP Pulse Ox 05/01/18 10:00 106 20 126/95 95 05/01/18 08:00 98.3 F 109 22 165/124 95 05/01/18 07:41 98.3 F General: Conversant, No Apparent Distress HEENT: Atraumatic, Normocephaly, Mucus Membranes Moist Neck: No JVD, Normal carotid pulses Cardiac: Normal S1 and S2, No Murmur, Other (Irregularlry irregular) Lungs: Other (Lung sounds diminshed throughout. Cough noted. ) Neuro: Alert and responsive, No focal deficits noted Abdomen: Soft, Non-Tender Skin: No rashes noted on visualized skin Musculoskeletal: No Chest Wall Tenderness Extremities: No Clubbing, No Cyanosis, No Edema, Normal Pulses Results 05/01/18 06:10 05/01/18 06:10 Lab Results Impressions Echocardiogram 04/30/18 06:07 Impressions: LV systolic function could not be well quantified in the setting of AF RVR. Possibly mildly reduced. Recommend repeat study when heart rates normalize. Indeterminate diastolic function. Normal right ventricular structure and function. Severely dilated left atrium. Mild aortic regurgitation. Mild mitral regurgitation. Mild tricuspid regurgitation. Mild pulmonary hypertension. The IVC is dilated. Findings: Study Quality * Technically sub-optimal due to clinical status. ECG Findings * Atrial fibrillation. Left Ventricle * LV systolic function could not be well quantified in the setting of AF RVR. * Normal LV chamber size. * Increased LV wall thickness - measurements not well obtained. * Indeterminate diastolic function. Right Ventricle * Normal right ventricular structure and function. Left Atrium * Severely dilated left atrium. Right Atrium * Normal right atrial size. Aortic Valve * Trileaflet aortic valve. * Mildly calcified aortic valve leaflets. * Mild aortic regurgitation. * No aortic stenosis. Mitral Valve * No mitral stenosis. * Mildly calcified mitral valve leaflets. * Mild mitral regurgitation. Tricuspid Valve * Mild tricuspid regurgitation. * Normal tricuspid valve structure. * Estimated RA pressure is 20 mmHg. * Estimated RVSP is 47 mmHg. * Mild pulmonary hypertension. Pulmonic Valve * Suboptimal PV signal. Pulmonary Artery * Pulmonary artery not well visualized. Aorta * Not optimally visualized. Pericardium * There is no pericardial effusion present. IVC * The IVC is dilated. * < 50% respiratory change. Interatrial Septum * No evidence of PFO by color Doppler. Active Medications Aspirin (Aspirin Ec) 81 mg PO DAILY BETZAIDA Stop: 10/30/18 09:01 Last Admin: 05/01/18 08:11 Dose: 81 mg Carbidopa/Levodopa (Sinemet) 1.5 each PO DAILY BETZAIDA Stop: 10/30/18 09:01 Last Admin: 05/01/18 08:10 Dose: 1.5 each Diltiazem HCl (Cardizem) 60 mg PO Q6H BETZAIDA Stop: 10/31/18 12:01 Guaifenesin (Mucinex) 600 mg PO BID BETZAIDA Stop: 10/31/18 10:31 Guaifenesin (Robitussin/Dm) 10 ml PO Q6HR PRN PRN Reason: Cough Stop: 10/31/18 10:19 Heparin Sodium (Porcine) (Heparin) 6,700 unit 70 unit/kg (6700 unit) IVP Q6HR PRN PRN Reason: SEE COMMENTS Stop: 10/30/18 15:28 Heparin Sodium (Porcine) (Heparin) 3,400 unit 35 unit/kg (3400 unit) IVP Q6H PRN PRN Reason: SEE COMMENTS Stop: 10/30/18 15:28 Last Admin: 05/01/18 09:51 Dose: 3,400 unit Ceftriaxone Sodium 1,000 mg/ (Sterile Water) 10 mls @ 600 mls/hr IVP DAILY BETZAIDA Stop: 10/30/18 09:01 Last Admin: 05/01/18 08:11 Dose: 600 mls/hr Heparin Sodium/Dextrose (Heparin 25,000 Unit/500 Ml D5w) 25,000 unit in 500 mls @ 26.964 mls/hr IVC .[id number] BETZAIDA; 14 UNIT/KG/HR PRN Reason: Protocol Stop: 10/30/18 15:31 Last Titration: 05/01/18 09:20 Dose: 12.92 unit/kg/hr, 24.9 mls/hr Levalbuterol HCl (Xopenex) 1.25 mg IH [id number] PRN PRN Reason: Shortness Of Breath Stop: 10/30/18 08:01 Lorazepam (Ativan) 1 mg PO BID PRN PRN Reason: Anxiety Stop: 10/30/18 03:10 Last Admin: 05/01/18 08:11 Dose: 1 mg Losartan Potassium (Cozaar) 100 mg PO DAILY BETZAIDA Stop: 10/30/18 09:01 Last Admin: 05/01/18 09:19 Dose: 100 mg Menthol (Cough Drops) 9.1 mg PO Q2H PRN PRN Reason: Cough Stop: 10/30/18 19:33 Last Admin: 04/30/18 20:37 Dose: 9.1 mg Metoprolol Succinate (Toprol Xl) 125 mg PO DAILY BETZAIDA Stop: 10/31/18 09:01 Last Admin: 05/01/18 08:10 Dose: 125 mg Metoprolol Succinate (Toprol Xl) 50 mg PO DAILY BETZAIDA Stop: 11/01/18 20:01 Metoprolol Tartrate (Lopressor) 5 mg IVP Q6HR PRN PRN Reason: HR>110 Stop: 10/30/18 07:52 (Stiolto Respimat (Inhal)) 2 puff IH DAILY BETZAIDA Stop: 10/30/18 09:01 Last Admin: 05/01/18 08:29 Dose: Not Given Omeprazole (Prilosec) 20 mg PO DAILY BETZAIDA PRN Reason: Protocol Stop: 10/30/18 09:01 Last Admin: 05/01/18 08:11 Dose: 20 mg Potassium Chloride (Potassium Chloride) 20 meq PO BID BETZAIDA Stop: 10/31/18 09:01 Last Admin: 05/01/18 09:19 Dose: 20 meq Laboratory Tests 05/01/18 05/01/18 06:10 06:10 Hgb 13.0 Potassium 3.0 L Creatinine 0.56 L - Imaging and Cardiology Chest Xray: report reviewed Echo: report reviewed - EKG Interpretation EKG results cardiology: other (Telemetry reviewed with average HR previous 12 hours noted to be 104, a.fib. PVCs noted. One 4 beat run of non-sustained VT noted.) - VTE Documentation of Mechanical Device: Intermittent pneumatic compression device Consult Discharge Plan - Plan Referrals: NONE,PCP [Primary Care Provider] -
[2018-05-01] MEDS: dilTIAZem HCl 60 MG TABLET PO SCH ×3 (12:04→20:30)
[2018-05-01] MEDS: FLUoxetine 20 MG CAPSULE PO SCH (12:06)
[2018-05-01] MEDS: Heparin 25,000 UNIT/500 ML D5W 25,000 UNIT/500 ML BAG IVC SCH (16:04)
[2018-05-01] MEDS: *HR* Rivaroxaban 10 MG TABLET PO SCH (17:11)
--- NOTE | 2018-05-01 17:27 | Internal Med Progress Note ---
Date of Encounter: 05/01/18 Time of Encounter: 09:30 - Assessment and plan (1) Atrial fibrillation with RVR Current Visit: Yes Status: Acute Assessment and plan: RVR with history of atrial fibrillation. Did not respond to IV Digoxin or calcium channel alton. Patient was started on IV Amiodarone drip and Heparin drip per cardiology recommendations. HR is better controlled today; to stop Amiodarone drip IV; continue increased doses of beta alton and CCB; to consider Digoxin loading if HR remains uncontrolled. Resume anticoagulation with Xarelto. Echocardiogram is a difficult study due to RVR, probably mildly reduced EF, severely dilated left atrium, study to be repeated when heart rate is better controlled. Cardiology f/up appreciated; (2) GI bleed Current Visit: Yes Status: Resolved Assessment and plan: Probably hemorrhoidal. Hemoglobin stable. Continue to monitor hemoglobin, resume anticoagulation with Xarelto. Qualifiers: GI bleed type/associated pathology: unspecified gastrointestinal hemorrhage type Qualified Code(s): K92.2 - Gastrointestinal hemorrhage, unspecified (3) COPD (chronic obstructive pulmonary disease) Current Visit: Yes Status: Chronic Assessment and plan: Not in acute exacerbation. Continue home medications, when necessary bronchodilators and supplemental oxygen. Start Robitussin; He is currently noted to be on 3 L/m nasal cannula, unclear if he is on home oxygen. Qualifiers: COPD type: unspecified COPD Qualified Code(s): J44.9 - Chronic obstructive pulmonary disease, unspecified (4) Parkinsons disease Current Visit: Yes Status: Chronic (5) Depression Current Visit: Yes Status: Chronic Assessment and plan: Patient reports that he has been an inpatient at the [place] psychiatric unit for suicidal ideation. Will obtain records from [facility] for further details. Patient currently denies suicidal or homicidal ideation. Continue home medications. Qualifiers: Depression Type: major depressive disorder Major depression recurrence: recurrent Active/Remission status: remission status unspecified Qualified Code(s): F33.9 - Major depressive disorder, recurrent, unspecified (6) Pneumonia Current Visit: Yes Status: Acute Assessment and plan: Chest XRay and CTA chest shows no PE but bibasilar opacities, atelectasis/ effusion/infiltrates. Continues to report productive cough; send sputum culture if possible; start Zithromax and continue Rocephin; supportive care and supplemental O2; Qualifiers: Pneumonia type: due to unspecified organism Laterality: bilateral Lung location: lower lobe of lung Qualified Code(s): J18.1 - Lobar pneumonia, unspecified organism - Time Spent With Patient Total time spent is greater than 50% in coordination of care (as documented) at patient's floor/unit and/or counseling patient: - Subjective Interval history: Reports persistent cough and some sputum; no chest pain, palpitations, shortness of breath, fever/chills; HR is better controlled since yesterday; - Constitutional Vitals: Temp Pulse Resp BP Pulse Ox 97.9 F 93 18 135/98 95 05/01/18 16:13 05/01/18 16:00 05/01/18 16:00 05/01/18 16:00 05/01/18 16:00 General appearance: Present: A&O X 3, answers questions appropriately - Respiratory Respiratory exam: Present: CTAB (coarse breath sounds B/L). Absent: accessory muscle use, rales, rhonchi, wheezes - Cardiovascular Cardiovascular exam: Present: irregular rhythm, RRR, +S1, +S2, tachycardia. Absent: diastolic murmur, gallop, rubs, systolic murmur - GI/Abdominal GI/Abdominal exam: Present: normal bowel sounds, soft, no peritoneal signs. Absent: distended, tenderness Internal Medicine: Result - Labs CBC & Chem 7: 05/01/18 06:10 05/01/18 06:10 Labs: Short CBC 05/01/18 Range/Units 06:10 WBC 6.9 (4.3-11.1) K/mcL Hgb 13.0 (12.9-16.9) g/dL Hct 41.6 (37.5-50.1) % Plt Count 317 (140-400) K/mcL Neutrophils # 4.6 (1.6-8.9) K/mcL BMP 05/01/18 06:10 Sodium 141 Potassium 3.0 L Chloride 105 Carbon Dioxide 30 H BUN 12 Creatinine 0.56 L Glucose 100 Calcium 8.3 L - ABG Interpretation ABG results: PT/INR, D-dimer PT 19.7 Seconds (9.4-12.1) H 04/30/18 15:45 - VTE Documentation of Mechanical Device: Intermittent pneumatic compression device Consult Discharge Plan - Plan Referrals: NONE,PCP [Primary Care Provider] -
[2018-05-01] MEDS: Azithromycin 500 MG in D5% in Water 250 ML IVPB SCH (20:30)
[2018-05-02 05:18] LABS: Basophils % 0.1 %; Eosinophils # 0.2 K/mcL (0.0-0.6); Eosinophils % 2.1 %; Hematocrit 39.4 % (37.5-50.1); Immature Granulocytes % 0.5 % (0-4); Lymphocytes # 1.8 K/mcL (0.6-4.6); Lymphocytes % 23.3 %; Mean Corpuscular HGB Conc 30.5 g/dL (31.6-35.5); Mean Corpuscular Hemoglobin 26.4 pg (28.0-33.3); Mean Corpuscular Volume 86.6 fL (83.0-100.0); Monocytes # 0.9 K/mcL (0.0-1.3); Monocytes % 11.9 %; Neutrophils # 4.8 K/mcL (1.6-8.9); Platelet Count 334 K/mcL (140-400); Red Blood Count 4.55 M/mcL (4.19-5.50); Red Cell Distribution Width 15.5 % (11.5-14.5); Segmented Neutrophils % 62.1 %
[2018-05-02 05:38] LABS: BUN/Creatinine Ratio 40 (6-26); Blood Urea Nitrogen 26 mg/dL (8-23); Calcium 8.7 mg/dL (8.6-10.3); Carbon Dioxide 32 mEq/L (23-29); Chloride 103 mEq/L (98-107); Glucose 91 mg/dL (70-105); Magnesium 1.6 mg/dL (1.6-2.6); Osmolality,Calculated 292 (280-300); Potassium 3.8 mEq/L (3.5-5.1); Sodium 139 mEq/L (136-145); eGFR For African Americans > 60 (> 60); eGFR For Non-African Americans > 60 (> 60)
[2018-05-02] MEDS: dilTIAZem HCl 60 MG TABLET PO SCH ×4 (05:43→23:45)
[2018-05-02] MEDS ORDERED: Tiotropium 18 MCG inhalation IH SCH (09:00)
--- NOTE | 2018-05-02 09:45 | Cardiology Progress Note ---
Date of Encounter: 05/02/18 Time of Encounter: 08:00 Assessment and Plan (1) Pneumonia Current Visit: Yes Status: Acute Per cardiology: -Admitted with pneumonia. -On ATB. -Management per primary service. Qualifiers: Pneumonia type: due to unspecified organism Laterality: bilateral Lung location: lower lobe of lung Qualified Code(s): J18.1 - Lobar pneumonia, unspecified organism (2) GI bleed Current Visit: Yes Status: Resolved Per cardiology: -Reported bright red blood per rectum. -Stool positive for OB. -Has been restarted on his xarelto. -Management per primary service. Qualifiers: GI bleed type/associated pathology: unspecified gastrointestinal hemorrhage type Qualified Code(s): K92.2 - Gastrointestinal hemorrhage, unspecified (3) Atrial fibrillation with RVR Current Visit: Yes Status: Acute Per cardiology: -Known PAF. -Was on BB and xarelto in outpatient setting. -Currently a.fib average HR 83. -ON BB, CCB. -[id number] score 3 (age, HTN). On xarelto for anticoagulation. -TTE with possible mild reduction in LVEF, however poor study due to a.fib RVR. -Continue BB, will switch CCB to long acting, starting tomorrow. -Will repeat limited TTE. Discussion w patient/family: The assessment and plan as outlined above was discussed with the patient who expressed understanding and agreement. All questions were answered. Thank you for involving us in the care of your patient. Please call with any questions.\ Discussed and reviewed with Dr.John Kirkland. Subjective Principal diagnosis: Pneumonia, a.fib RVR Interval history: Patient denies palpitations, fluttering. Reports cough is mildly improved. Objective Vital Signs, Last 4 Hours Temp Pulse Resp BP Pulse Ox 05/02/18 07:41 18 95 05/02/18 07:36 97.8 F 84 16 135/94 97 General: Conversant, No Apparent Distress HEENT: Atraumatic, Normocephaly, Mucus Membranes Moist Neck: No JVD, Normal carotid pulses Cardiac: Normal S1 and S2, No Murmur, Other (Irregularly irregular ) Lungs: Normal Breath Sounds, No Wheeze, Rales, Rhonchi Neuro: Alert and responsive, No focal deficits noted Abdomen: Soft, Non-Tender Skin: No rashes noted on visualized skin Musculoskeletal: No Chest Wall Tenderness Extremities: No Clubbing, No Cyanosis, No Edema, Normal Pulses Results 05/02/18 04:57 05/02/18 04:57 Lab Results Active Medications Aspirin (Aspirin Ec) 81 mg PO DAILY [facility] Stop: 10/30/18 09:01 Last Admin: 05/01/18 08:11 Dose: 81 mg Azithromycin (Zithromax) 500 mg PO Q24H [facility] Stop: 11/02/18 18:01 Bupropion HCl (Wellbutrin Xl) 300 mg PO DAILY [facility] Stop: 11/01/18 09:01 Carbidopa/Levodopa (Sinemet) 1.5 each PO TID [facility] Stop: 11/01/18 09:40 Diltiazem HCl (Cardizem) 60 mg PO Q6H [facility] Stop: 10/31/18 12:01 Last Admin: 05/02/18 05:43 Dose: 60 mg Fluoxetine HCl (Prozac) 40 mg PO DAILY [facility] Stop: 10/31/18 12:31 Last Admin: 05/01/18 12:06 Dose: 40 mg Guaifenesin (Mucinex) 600 mg PO BID [facility] Stop: 10/31/18 10:31 Last Admin: 05/01/18 20:30 Dose: 600 mg Guaifenesin (Robitussin/Dm) 10 ml PO Q6HR PRN PRN Reason: Cough Stop: 10/31/18 10:19 Ceftriaxone Sodium 1,000 mg/ (Sterile Water) 10 mls @ 600 mls/hr IVP DAILY [facility] Stop: 10/30/18 09:01 Last Admin: 05/01/18 08:11 Dose: 600 mls/hr Azithromycin 500 mg/ Dextrose 250 mls @ 252 mls/hr IVPB Q24H [facility] Stop: 05/02/18 20:00 Last Admin: 05/01/18 20:30 Dose: 252 mls/hr Levalbuterol HCl (Xopenex) 1.25 mg IH [id number] PRN PRN Reason: Shortness Of Breath Stop: 10/30/18 08:01 Lorazepam (Ativan) 1 mg PO BID PRN PRN Reason: Anxiety Stop: 10/30/18 03:10 Last Admin: 05/01/18 08:11 Dose: 1 mg Losartan Potassium (Cozaar) 100 mg PO DAILY [facility] Stop: 10/30/18 09:01 Last Admin: 05/01/18 09:19 Dose: 100 mg Menthol (Cough Drops) 9.1 mg PO Q2H PRN PRN Reason: Cough Stop: 10/30/18 19:33 Last Admin: 04/30/18 20:37 Dose: 9.1 mg Metoprolol Succinate (Toprol Xl) 125 mg PO DAILY [facility] Stop: 10/31/18 09:01 Last Admin: 05/01/18 08:10 Dose: 125 mg Metoprolol Succinate (Toprol Xl) 50 mg PO HS [facility] Stop: 10/31/18 21:01 Last Admin: 05/01/18 20:30 Dose: 50 mg Metoprolol Tartrate (Lopressor) 5 mg IVP Q6HR PRN PRN Reason: HR>110 Stop: 10/30/18 07:52 Omeprazole (Prilosec) 20 mg PO DAILY [facility] PRN Reason: Protocol Stop: 10/30/18 09:01 Last Admin: 05/01/18 08:11 Dose: 20 mg Potassium Chloride (Potassium Chloride) 20 meq PO BIDWM [facility] Stop: 11/01/18 08:01 Rivaroxaban (Xarelto) 20 mg PO 1700 [facility] Stop: 10/31/18 17:01 Last Admin: 05/01/18 17:11 Dose: 20 mg Tiotropium [place]ka (Spiriva) 18 mcg IH DAILYR [facility] Stop: 11/01/18 10:01 Laboratory Tests 05/02/18 05/02/18 04:57 04:57 Hgb 12.0 L Potassium 3.8 D Creatinine 0.65 L - Imaging and Cardiology Chest Xray: report reviewed Echo: pending, report reviewed - EKG Interpretation EKG results cardiology: other (Telemetry reviewed with average HR previous 12 hours noted to be 83, a.fib. PVCs and couplets noted.) - VTE Documentation of Mechanical Device: Intermittent pneumatic compression device Consult Discharge Plan - Plan Referrals: NONE,PCP [Primary Care Provider] -
[2018-05-02] MEDS: cefTRIAXone 1,000 MG in Water for inj. (sterile) 20 ML 10 ML IVP SCH (10:03)
[2018-05-02] MEDS: Metoprolol XL (24 HR) Succ 50 MG TAB.ER.24H PO SCH ×2 (10:06→20:48)
[2018-05-02] MEDS: BuPROPion XL (24 HR) 150 MG TABLET PO SCH (10:06)
[2018-05-02] MEDS: FLUoxetine 20 MG CAPSULE PO SCH (10:07)
[2018-05-02] MEDS: Aspirin Enteric Coated 81 MG Tablet PO SCH (10:07)
[2018-05-02] MEDS: Carbidopa/Levodopa 25/100 TABLET PO SCH ×3 (10:07→20:48)
[2018-05-02] MEDS: Tiotropium 18 MCG inhalation IH SCH (10:13)
--- NOTE | 2018-05-02 14:52 | Internal Med Progress Note ---
Date of Encounter: 05/02/18 Time of Encounter: 10:45 - Assessment and plan (1) Atrial fibrillation with RVR Current Visit: Yes Status: Acute Assessment and plan: RVR with history of atrial fibrillation. Initially on IV Amiodarone drip and Heparin drip per cardiology recommendations. HR is much better controlled now. continue increased doses of beta alton and CCB; to consider Digoxin loading if HR remains uncontrolled. Continue anticoagulation with Xarelto. Echocardiogram is a difficult study due to RVR, probably mildly reduced EF, severely dilated left atrium, study to be repeated today. Cardiology f/up appreciated; (2) GI bleed Current Visit: Yes Status: Resolved Qualifiers: GI bleed type/associated pathology: unspecified gastrointestinal hemorrhage type Qualified Code(s): K92.2 - Gastrointestinal hemorrhage, unspecified (3) COPD (chronic obstructive pulmonary disease) Current Visit: Yes Status: Chronic Assessment and plan: Not in acute exacerbation. Continue home medications, when necessary bronchodilators and supplemental oxygen. On Robitussin; improving O2 requirements; Qualifiers: COPD type: unspecified COPD Qualified Code(s): J44.9 - Chronic obstructive pulmonary disease, unspecified (4) Parkinsons disease Current Visit: Yes Status: Chronic (5) Depression Current Visit: Yes Status: Chronic Assessment and plan: Patient reports that he has been an inpatient at the [place] psychiatric unit for suicidal ideation. Reviewed records from [facility]- patient was admitted to inpatient Psychiatry when he was transferred here for RVR and respiratory failure; hence, plan will be to send him back to [place] hospital. Patient currently denies suicidal or homicidal ideation. Continue home medications. Qualifiers: Depression Type: major depressive disorder Major depression recurrence: recurrent Active/Remission status: remission status unspecified Qualified Code(s): F33.9 - Major depressive disorder, recurrent, unspecified (6) Pneumonia Current Visit: Yes Status: Acute Assessment and plan: Chest XRay and CTA chest shows no PE but bibasilar opacities, atelectasis/ effusion/infiltrates. Continues to report productive cough; send sputum culture if possible; on Zithromax and Rocephin; supportive care and supplemental O2; Qualifiers: Pneumonia type: due to unspecified organism Laterality: bilateral Lung location: lower lobe of lung Qualified Code(s): J18.1 - Lobar pneumonia, unspecified organism - Time Spent With Patient Total time spent is greater than 50% in coordination of care (as documented) at patient's floor/unit and/or counseling patient: - Subjective Interval history: Feels better; no fever, chills, shortness of breath or chest pain; continues to have some intermittent cough; HR is much better controlled; - Constitutional Vitals: Temp Pulse Resp BP Pulse Ox 97.4 F L 78 15 146/82 93 05/02/18 11:13 05/02/18 11:13 05/02/18 11:13 05/02/18 11:13 05/02/18 11:13 General appearance: Present: A&O X 3, answers questions appropriately - Respiratory Respiratory exam: Present: CTAB. Absent: accessory muscle use, rales, rhonchi, wheezes - Cardiovascular Cardiovascular exam: Present: irregular rhythm, +S1, +S2. Absent: diastolic murmur, gallop, rubs, systolic murmur - GI/Abdominal GI/Abdominal exam: Present: normal bowel sounds, soft, no peritoneal signs. Absent: distended, tenderness Internal Medicine: Result - Labs CBC & Chem 7: 05/02/18 04:57 05/02/18 04:57 Labs: Short CBC 05/02/18 Range/Units 04:57 WBC 7.7 (4.3-11.1) K/mcL Hgb 12.0 L (12.9-16.9) g/dL Hct 39.4 (37.5-50.1) % Plt Count 334 (140-400) K/mcL Neutrophils # 4.8 (1.6-8.9) K/mcL BMP 05/02/18 04:57 Sodium 139 Potassium 3.8 D Chloride 103 Carbon Dioxide 32 H BUN 26 H Creatinine 0.65 L Glucose 91 Calcium 8.7 - ABG Interpretation ABG results: PT/INR, D-dimer PT 19.7 Seconds (9.4-12.1) H 04/30/18 15:45 - VTE Documentation of Mechanical Device: Intermittent pneumatic compression device Consult Discharge Plan - Plan Referrals: NONE,PCP [Primary Care Provider] -
[2018-05-02] MEDS: Azithromycin 500 MG in D5% in Water 250 ML IVPB SCH (16:57)
[2018-05-02] MEDS: *HR* Rivaroxaban 10 MG TABLET PO SCH (16:57)
[2018-05-02] MEDS ORDERED: Metoprolol XL (24 HR) Succ 50 MG TAB.ER.24H PO SCH (20:00)
--- NOTE | 2018-05-03 08:04 | Event Note ---
Date of Encounter: 05/03/18 Time of Encounter: 08:03 - Cardiology Event Note Limited TTE resulted. EF is normal--55%. Mild cLVH, normal RV structure and function, biatrial enlargement. Cardiology is signing off. Reconsult PRN. Will coordinate outpt follow-up.
[2018-05-03] MEDS: FLUoxetine 20 MG CAPSULE PO SCH (08:10)
[2018-05-03] MEDS: BuPROPion XL (24 HR) 150 MG TABLET PO SCH (08:11)
[2018-05-03] MEDS: Carbidopa/Levodopa 25/100 TABLET PO SCH (08:11)
[2018-05-03] MEDS: Aspirin Enteric Coated 81 MG Tablet PO SCH (08:11)
[2018-05-03] MEDS: cefTRIAXone 1,000 MG in Water for inj. (sterile) 20 ML 10 ML IVP SCH (08:11)
[2018-05-03] MEDS: Metoprolol XL (24 HR) Succ 50 MG TAB.ER.24H PO SCH (08:12)
[2018-05-03] MEDS ORDERED: Diltiazem CD (24hr) 240 MG CAPSULE PO SCH (09:00)
[2018-05-03] MEDS: Tiotropium 18 MCG inhalation IH SCH (11:23)
--- NOTE | 2018-05-03 11:24 | Discharge Summary ---
- NOTES TO OUTPATIENT PROVIDER Notes to Outpatient Provider: Tiny with RVR, cough, Pneumonia and chronic bronchitis; Orders not resulted at time of discharge: Pending orders 05/01/18 10:17 Culture,Sputum with Gram Stain [RM] Routine Date of Encounter: 05/03/18 Time of Encounter: 11:22 - Discharge Diagnosis (1) Atrial fibrillation with RVR Priority: Primary Status: Acute (2) GI bleed Priority: Primary Status: Resolved Qualifiers: GI bleed type/associated pathology: unspecified gastrointestinal hemorrhage type Qualified Code(s): K92.2 - Gastrointestinal hemorrhage, unspecified (3) COPD (chronic obstructive pulmonary disease) Priority: Secondary Status: Chronic Qualifiers: COPD type: unspecified COPD Qualified Code(s): J44.9 - Chronic obstructive pulmonary disease, unspecified (4) Parkinsons disease Priority: Secondary Status: Chronic (5) Depression Priority: Secondary Status: Chronic Qualifiers: Depression Type: major depressive disorder Major depression recurrence: recurrent Active/Remission status: remission status unspecified Qualified Code(s): F33.9 - Major depressive disorder, recurrent, unspecified (6) Pneumonia Priority: Primary Status: Acute Qualifiers: Pneumonia type: due to unspecified organism Laterality: bilateral Lung location: lower lobe of lung Qualified Code(s): J18.1 - Lobar pneumonia, unspecified organism Hospital course: Mr. Ozuna is a 77 year old male with the above medical problems, who was transferred from the [place] hospital due to uncontrolled atrial fibrillation with RVR. Patient was started on IV amiodarone drip in the emergency room, after discussing with cardiology. Patient was admitted to ICU for closer monitoring. He continued to have uncontrolled tachycardia, his home dose of beta alton was increased and he was also started on calcium channel alton with subsequent improvement in heart rate. He was then taken off IV amiodarone drip. Cardiology followed the patient during this admission. Initial echocardiogram was difficult study due to RVR, repeat study shows preserved ejection fraction, biatrial enlargement, mild concentric LVH. Off note, patient was recently admitted to psychiatric unit at the [place] due to suicidal ideation. He denied suicidal or homicidal thoughts throughout this hospitalization, claiming that he had lack of sleep due to chronic cough which gave him suicidal thoughts. He continued to have intermittent cough during this admission. Chest x-ray was suspicious for pneumonia, he was treated with IV antibiotics. He also received antitussives and breathing treatments. Patient is currently medically stable for discharge. client services vice president on board, "patient has presented from home and he declines further inpatient treatment at [place]", hence he is being discharged home. Discharge discussed with: patient, nurse - Time Spent with Patient Total time spent providing and/or coordinating discharge services: Greater than 30 minutes (45 min) - Discharge Medications Prescriptions: Diltiazem CD (24hr) [Cardizem CD] 240 mg PO DAILY #30 cap.er.24h Levofloxacin [Levaquin] 750 mg PO DAILY #5 tablet Metoprolol XL (24 HR) Succ [Toprol Xl] 125 mg PO DAILY #90 tab.er.24h Metoprolol XL (24 HR) Succ [Toprol Xl] 50 mg PO HS #30 tab.er.24h Home Medications: Aspirin Enteric Coated [Aspirin EC] 81 mg PO DAILY 04/29/18 [History] Bupropion HCl [Wellbutrin Xl] 300 mg PO DAILY 04/29/18 [History] Carbidopa/Levodopa [Carbidopa-Levodopa 25-100 Tab] 1.5 tab PO TID 04/29/18 [ History] FLUoxetine HCl [Prozac] 40 mg PO DAILY 04/29/18 [History] Ferrous Sulfate [Iron] 325 mg PO DAILY 04/29/18 [History] Fluticasone Propionate Nasal [Flonase] 2 spr NS DAILY 04/29/18 [History] LORazepam [Ativan] 1 mg PO BID PRN 04/29/18 [History] Levalbuterol HCl [Xopenex Concentrate] 1.25 mg IH Q4H PRN 04/29/18 [History] Losartan Potassium [Cozaar] 100 mg PO DAILY 04/29/18 [History] Omeprazole [PriLOSEC] 20 mg PO DAILY 04/29/18 [History] Potassium Chloride [K-Tab ER] 20 meq PO HS 04/29/18 [History] Rivaroxaban [Xarelto] 20 mg PO HS 04/29/18 [History] Silodosin [Rapaflo] 4 mg PO HS 04/29/18 [History] Tiotropium Br/Olodaterol HCl [Stiolto Respimat Inhal [place]] 2.5 mg IH DAILY [History] Vit A/Vit C/Vit E/Zinc/Copper [Preservision Areds Tablet] 1 tab PO BID 04/29/18 [History] Albuterol Sulfate [Albuterol Inhaler] 90 mcg IH QID PRN 04/30/18 [History] Carbidopa-Levodopa 25-100 Tab 37.5 mg PO BID 04/30/18 [History] Saw [place] 450 mg PO HS 04/30/18 [History] Triamcinolone Acet 0.1% CRM 1 applic TP BID PRN 04/30/18 [History] Vit A/Vit C/Vit E/Zinc/Copper [Icaps Areds Softgel] 1 each PO 04/30/18 [History] amLODIPine [Norvasc] 2.5 mg PO BID 04/30/18 [History] Diltiazem CD (24hr) [Cardizem CD] 240 mg PO DAILY cap.er.24h 05/03/18 [Rx] Diltiazem CD (24hr) [Cardizem CD] 240 mg PO DAILY #30 cap.er.24h 05/03/18 [Rx] GuaiFENesin/Dextromethorphan [Robitussin/Dm] 10 ml PO Q6HR PRN udc 05/03/18 [Rx ] Ipratropium/Albuterol Neb [Duoneb] 3 ml IH [id number] PRN inhsol 05/03/18 [Rx] Levofloxacin [Levaquin] 750 mg PO DAILY #5 tablet 05/03/18 [Rx] Metoprolol XL (24 HR) Succ [Toprol Xl] 50 mg PO HS tab.er.24h 05/03/18 [Rx] Metoprolol XL (24 HR) Succ [Toprol Xl] 50 mg PO HS #30 tab.er.24h 05/03/18 [Rx] Metoprolol XL (24 HR) Succ [Toprol Xl] 125 mg PO DAILY tab.er.24h 05/03/18 [Rx] Metoprolol XL (24 HR) Succ [Toprol Xl] 125 mg PO DAILY #90 tab.er.24h 05/03/18 [ Rx] Allergies/Adverse Reactions: 3 Allergy/AdvReac Type Severity Reaction Status Date / Time No Known Allergies Allergy Verified 04/29/18 21:22 Date of admission: 04/30/18 09:03 Primary care physician: PCP NONE Consults: 04/30/18 19:22 Consult to Respiratory Therapy [CONS] Routine Reason for Consult: pt may use home cpap Call Completed: No Discharging clinician: Cynthia Elizabeth Anticipated date of discharge: 05/03/18 - Constitutional Vitals: Temp Pulse Resp BP Pulse Ox 97.5 F L 87 16 150/83 92 05/03/18 07:22 05/03/18 07:22 05/03/18 07:22 05/03/18 07:22 05/03/18 07:22 General appearance: Present: A&O X 3, answers questions appropriately - Cardiovascular Cardiovascular exam: Present: irregular rhythm, +S1, +S2. Absent: diastolic murmur, gallop, rubs, systolic murmur - Patient Status Disposition: Transfer [facility] Condition: Fair Functional capacity at discharge: uses cane/walker Overall status at discharge: patient is progressing back to baseline - Discharge Instructions Instructions: Levofloxacin (By mouth), Atrial Fibrillation (DC) Follow Up With: NONE,PCP [Primary Care Provider] - (Please call your PCP and make a hospital follow up within 5-7 days from discharge. Thank you!) Additional Instructions: F/up with PCP in 1-2 weeks - Diet and Activity Activity: as per physical therapy, wear oxygen at all times (PRN to maintain O2 sat>90%, at 1-2L/min via [place]) Diet: low fat, low cholesterol, low salt diet - VTE Documentation of Mechanical Device: Intermittent pneumatic compression device
[2018-05-03] MEDS: Ipratropium/Albuterol Neb 3 ML IH SCH ×2 (14:26→15:29)
[2018-05-03 15:45] VITALS: BP 123/78
[2018-05-03] MEDS ORDERED: Azithromycin 250 MG TABLET PO SCH (18:00)
== END 2018-05-03 16:17 | DRG 308 ==
LOC: EMEROO 19:25 → ICNU 19:25 → SUATTDRO 22:23 → ICNU 23:56 → 2ANU 05-01 19:07
PROVIDERS: ADMIT Internal Medicine Nephrology; ATTEND Internal Medicine